=== PATIENT | female | born 1960 | race Two or more races ===

== ENCOUNTER → 2016-10-21 | Outpatient (CLI) | payer BC ==
--- NOTE | 2016-11-10 00:46 | ECWPNPC ---
PATIENT NAME: DARÍO ORTIZ : 1960 GENDER: FEMALE VISIT DATE: 10/21/2016 DISCHARGE DATE: 10/21/16 1455 VISIT LOCKED DATE TIME: PHYSICIAN: WILFRED GUERRERO RESOURCE: WILFRED GUERRERO REASON FOR APPOINTMENT 1. LEFT SCAPULA HISTORY OF PRESENT ILLNESS TODAY'S VISIT: NOTES: REFERRED BY Lata JOLLY PA-C FOR SHOULDER/SHOULDER BLADE PAIN. SX BEGAN AFTER DOING GARDENING WITH A TOOL WHICH REQUIRED ARM MOVEMENT. ONSET OF ACHE IN LEFT SCAPULA AND THEN BECAME A AGONIZING DEEP/THROBBING PAIN. INITIALLY PAIN WAS CONSTANT AND ADVANCED OVER THE LEFT ARM TO THE FOREARM. NO RADIATION TO HAND. HOT SHOWER IS HELPFUL. HAD INJECTION OF STEROIDS TO REGION 1 WEEK AGO AND THIS PLUS MOIST HEAT HAD DECREASED SOME OF THE INTENSITY. IS NO EXPERIENCING SOME N/T TO ALL FINGERS TIPS, NOT MUCH IN THE THUMB. NO SPECIFIC WEAKNESS.IS ABLE TO FULLY ABDUCT THE ARM. NEVER HAD ANYTHING THIS SEVERE BUT DID HAVE PRIOR ACHES AND PAIN. NO HISTORY OF SHOULDER JOINT PROBLEMS. HAS HX OF SOME MYOFASCIAL. NO HX OF HYPERFLEXION OF SHOULDER. ASPIRIN CREME NO HELP, DICLOFENAC AND BACLOFEN JUST STARTED. SANA 2 CAPS TID. . NEW PATIENT CONSULT: WHEN DID YOUR PAIN FIRST START? . BRIEFLY DESCRIBE HOW YOUR PAIN STARTED? . HOW DOES YOUR PAIN CHANGE WITH TIME? . DOES YOUR PAIN AWAKEN YOU FROM SLEEP? . HOW MANY HOURS OF SLEEP DO YOU NORMALLY GET? . ANY DIAGNOSTIC TESTING? . FACILITY WHERE TESTS WERE DONE? ____. PAIN TREATMENT TREATMENT YES CANCER HAVE YOU EVER HAD ANY TYPE OF CANCER?NO NO. PAIN SCREENING: PATIENT HAS A COMPLAINT OF ACUTE OR CHRONIC PAIN :YES FALL RISK SCREENING: SCREENING :NO FALLS IN THE PAST YEAR [place] INVENTORY: QUESTIONNAIRE ASSESSEDYES SCORE VALUE CALCULATED YES SCORE: 2 DENIES SUICIDAL OR HOMICIDAL IDEATION CURRENT MEDICATIONS TAKING GABAPENTIN 100 MG CAPSULE 2 CAPS ORALLY TID TAKING ATENOLOL 25 MG TABLET 1 TABLET ORALLY ONCE A DAY PRN TAKING PREMARIN 0.625 MG/GM CREAM VAGINAL TAKING CO Q 10 200 MG CAPSULE 1 CAPSULE WITH A MEAL ORALLY ONCE A DAY TAKING VITAMIN C 500 MG CAPSULE ORALLY TAKING PROBIOTIC - CAPSULE ORALLY DAILY TAKING IRON 325 (65 FE) MG TABLET 1 TABLET ORALLY ONCE A DAY UNKNOWN BACLOFEN 10 MG TABLET ORAL UNKNOWN DICLOFENAC SODIUM 75 MG TABLET DELAYED RELEASE ORAL UNKNOWN AMOXICILLIN 875 MG TABLET ORAL UNKNOWN MECLIZINE HCL 25 MG TABLET ORAL PAST MEDICAL HISTORY PALPITATIONS HYPERLIPIDEMIA ANEMIA DIVERTICULAR DISEASE ALLERGIES N.K.D.A. SURGICAL HISTORY LEFT BREAST BX 1995 FAMILY HISTORY FATHER: , DIAGNOSED WITH DIABETES, HYPERTENSION, HEART DISEASE, OTHER MOTHER: ALIVE, DIAGNOSED WITH DIABETES SIBLINGS: ALIVE DAUGHTER(S): ALIVE FATHER ALZHEMIERS. SOCIAL HISTORY GENERAL: TOBACCO USE ARE YOU A:NONSMOKER ALCOHOL SCREENING POINTS0 INTERPRETATIONNEGATIVE OCCUPATION: [employer] ADMINISTRATOR. DIET: REGULAR- HEALOTHY. EXERCISE: NO REGULAR EXERCISE. MARITAL STATUS: . OTHERS AT HOME: SPOUSE, CHILD. PETS: ONE. SCIENTOLOGY [id number] EPISCOPAL [facility] PFS, CLERGY, PUBLIC HEALTH REFERRALS CLERGY REFERRAL NEEDED?NO WAS THE PROVIDER NOTIFIED OF ANY PERTINENT INFO?NO PFS REFERRAL NEEDED?NO PUBLIC HEALTH REFERRAL NEEDED?NO HAS THE PATIENT BEEN EDUCATED REGARDING HIS/HER PLAN OF CARE?YES PLEASE DOCUMENT ANY ADDTIONAL DETAILS.PLEASE FREE TEXT IN THE NOTES SECTION. HAS THE PATIENT BEEN EDUCATED REGARDING PAIN, THE RISK FOR PAIN, THE IMPORTANCE OF EFFECTIVE PAIN MANAGEMENT, AND THE PAIN ASSESSMENT PROCESS?YES PATIENT: ____. ADVANCE DIRECTIVES HEALTH CARE PROXY?NO WOULD YOU LIKE MORE INFORMATION?YES DO YOU HAVE A DNR?NO WOULD YOU LIKE MORE INFORMATION?NO LIVING WILL?NO WOULD YOU LIKE MORE INFORMATION?NO HOUSING: OWNS HOME. REVIEW OF SYSTEMS REVIEWED BY: PROVIDER: WILFRED MENDEZ . CONSTITUTIONAL: ANY CHANGE IN YOUR MEDICAL CONDITION? NO . CHILLS NO . FEVER NO . INFECTION: DO YOU HAVE NEW INFECTIONS? NO . DO YOU HAVE HISTORY OF MRSA? NO . MUSCULOSKELETAL: ANY NEW PATTERNS OF PAIN OR NUMBNESS? YES. HX OF RIGHT SHOULDER ISSUES - DR Woo ARREOLA . SYTEMIC LUPUS NO . GASTROENTEROLOGY: ANY NEW CHANGE IN BOWEL CONTROL? NO . BARRETTS ESOPHAGUS NO . CIRRHOSIS NO . HEPATITIS NO . LIVER FAILURE NO . ACID REFLUX NO . UNEXPLAINED WEIGHT LOSS NO . GENITOURINARY: ANY NEW CHANGE IN BLADDER CONTROL? NO . IS THERE A CHANCE YOU COULD BE ? NO . HEMATOLOGY/LYMPH: DO YOU TAKE ANY BLOOD THINNERS? (FOR EXAMPLE- COUMADIN, PLAVIX, AGGRENOX, PLATEL, PRADAXA, OR XARELTO) NO . WHEN WAS YOUR LAST DOSE? DATE: TIME: . LOW PLATELET COUNT NO . SICKLE CELL DISEASE NO . VON WILLIEBRANDS NO . FACTOR V LEIDEN NO . THALLASEMIA NO . ANEMIA NO . EASY BRUISING NO . NEUROLOGY: HAVE YOU FALLEN IN THE PAST 6 MONTHS? NO . ANY NEW EXTREMITY NUMBNESS OR WEAKNESS? NO . HEAD INJURY NO . DEMENTIA NO . CEREBRAL PALSY NO . MULTIPLE SCLEROSIS NO . DIZZINESS NO . HEADACHE NO . STROKES NO . VERTIGO VERTIGO - LEFT SIDE. HAS DONE EPLY IN THE PAST. . CARDIOLOGY: DO YOU HAVE A PACEMAKER OR DEFIBRILLATOR? NO . ANGINA NO . HEART ATTACK NO . HEART SURGERY NO . CONGESTIVE HEART FAILURE/FLUID OVERLOAD NO . CHEST PAIN NO . HIGH BLOOD PRESSURE NO . IRREGULAR HEART BEAT NO - HX OF PALPITATIONS - ON ATENOLOL - HAD WORK UP . RESPIRATORY: HAVE YOU BEEN SICK IN THE PAST WEEK? NO . FEVER NO . FLU LIKE SYMPTOMS? NO . CPAP NO . BYPAP NO . ASTHMA NO . EMPHYSEMA NO . CHRONIC LUNG DISEASES NO . SHORTNESS OF BREATH ON EXERTION NO . DO YOU USE ANY TYPE OF TOBACCO (SMOKE, SMOKELESS, CHEW)? NO . COUGH NO . SNORING NO . INTEGUMENTARY: DO YOU HAVE ANY RASHES OR OPEN SORES? NO - ADULT ACNE . ALLERGIC/IMMUNO: ARE YOU ALLERGIC TO SHELLFISH OR IV DYE? NO . ANY NEW ALLERGIES? NO . PSYCHIATRIC: DO YOU HAVE THOUGHTS OF HURTING YOURSELF OR SOMEONE ELSE? NO . ARE YOU ABUSED, NEGLECTED, OR IN AN UNSAFE ENVIRONMENT? NO . ENDOCRINOLOGY: ARE YOU DIABETIC? NO . THYROID DISORDER NO . OTHER: DO YOU NEED ANY PRESCRIPTIONS? NO . IF YES, PLEASE LIST: ____ . ANY NEW PROBLEMS WITH YOUR MEDICATIONS? NO . WHEN DID YOU LAST EAT? ____ . WHEN DID YOU LAST DRINK? ____ . WHAT DID YOU LAST DRINK? ____ . NAME OF PERSON DRIVING YOU HOME? ____ . DO YOU HAVE ANY OTHER QUESTIONS OR CONCERNS NO . VITAL SIGNS WT 123.0 LBS, HT 64", BMI 21.11 INDEX, BP 118/69 MM HG, HR 70 /MIN, RR 16 /MIN, TEMP 98.4 F, OXYGEN SAT % 100%, NA INITIALS TL 1320, REVIEWED BY: KG. EXAMINATION GENERAL EXAMINATION: GENERAL APPEARANCE:WELL GROOMED. PSYCHALERT , ORIENTED X 3 , ANXIOUS. HEENT:NORMOCEPHALIC, NO LYMPHADENOPATHY, NO THYROMEGLY. LUNGS:CLEAR TO AUSCULTATION BILATERALLY, NO WHEEZES, RALES OR RHONCHI. REPORTS CHEST WALL PAIN WITH TAKING A DEEP BREATH. HEART:HEART RATE REGULAR, NORMAL S1S2, NO MURMURS, CLICK OR RUBS. MUSCULOSKELETAL:EXQUISITE TENDERNESS AND TRIGGER POINTS OVER LEFT SUPRASPINATOUS MUSCLE, OVER THE LEFT TRAPEZIUS/ALONG SCAPULA AND LEFT LATISSIMUS DORSI. STRUCTURES TECHNICIAN STRENGTH EQUAL AND STRONG. CAN ABDUCT LEFT ARM WITH COMPLAINT OF PAIN TO TO > 90 DEGREES. DECREASED ROM WITH NECK ROTATION, LEXION AND EXTENSION. TIGHTNESS AND SPASM NOTED OVER LEFT STERNOCLEIDOMASTOID MUSCLE. SOME WINGING OF LEFT SCAPULA NOTED. . NEUROLOGIC EXAM:DTR'S 2 + BILATRAL UPPER AND LOWER EXTREMITIES. POSITIVE TINELS SIGN LEFT ELBOW - NEG AT WRISTS OR RIGHT ELBOW. - DECREASE SENSATION TO LIGHT TOUCH OVER LEFT FOREARM. . ASSESSMENTS MYALGIA - M79.1 (PRIMARY) ACUTE PAIN OF LEFT SHOULDER - M25.512 TREATMENT MYALGIA STOP BACLOFEN TABLET, 10 MG, ORAL START TIZANIDINE HCL TABLET, 2 MG, 1 TABLET NEEDED, ORALLY, TAKE 1 IN AM AND 2 AT BEDTIME, 30 DAY(S), 90, REFILLS 1 LRY SPINE CERVICAL W/AP/FLEX/[id number] SHOULDER [id number],SUSAN M 10/21/2016 2:37:58 PM > LEFT - PAIN, LOSS OF ROM NOTES: OVER THE COUNTER TENS UNIT TO PAINFUL ANDERSON LEFT SHOULDER BLADECONSIDER MASSAGE THERA[YSTOP DICLOFENAC - START ALEVE (NAPROXYN) 1 TAB TWICE A DAY WITH FOODCONTINUE ICE AND HEAT. CLINICAL NOTES: DISCUSSED OPTIONS FOR TREATMENT INCLUDING PHYSICAL THERAPY, APPLICATION OF ICE AND HEAT, AND POSSIBLE INTERVENTIONS/INJECTION TREATMENT. PROCEDURE CODES FA211 ESTABILISHED PATIENT [facility] CHARGE DISPOSITION & COMMUNICATION FOLLOW UP 2 WEEKS (REASON: LEFT SCAPULA) ELECTRONICALLY SIGNED BY NELIA ORTEGA ON 11/09/2016 AT 02:50 PM EDT DISCLAIMER : THIS IS A VISIT SUMMARY EXTRACTED FROM THE [employer] CHART. IT IS NOT A COPY OF THE [employer] PROGRESS NOTE. KRISTOFERD
== END ==
LOC: M PAIN 13:20
PROVIDERS: ATTEND Nurse Practitioner Family
DX: G89.29 Other chronic pain (principal); M25.512 Pain in left shoulder; M79.1 Myalgia; E78.5 Hyperlipidemia, unspecified; Z79.899 Other long term (current) drug therapy

== ENCOUNTER → 2016-11-04 | Outpatient (CLI) | payer BC ==
--- NOTE | 2016-11-29 00:08 | ECWPNPC ---
PATIENT NAME: DARÍO ORTIZ : 1960 GENDER: FEMALE VISIT DATE: 11/04/2016 DISCHARGE DATE: 11/04/16 1309 VISIT LOCKED DATE TIME: PHYSICIAN: WILFRED GUERRERO RESOURCE: WILFRED GUERRERO REASON FOR APPOINTMENT 1. SCALPULA HISTORY OF PRESENT ILLNESS HISTORY OF PRESENT ILLNESS: PAIN THE PATIENT DESCRIBES THE PAIN... FALL RISK SCREENING: SCREENING :NO FALLS IN THE PAST YEAR TODAY'S VISIT: NOTES: RATES PAIN TODAY 1-06/04. DIDNOT TOLERATE THE TIZANIDINE. HAS BEEN USING OTC TENS WITH GOOD EFFECT ALONG WITH ICY-HOT. HAS BEEN HAVING N/T INTO LEFT HAND ON AWAKENING . CURRENT MEDICATIONS TAKING GABAPENTIN 100 MG CAPSULE 1 CAP ORALLY THREE TIMES DAILY TAKING ATENOLOL 25 MG TABLET 1 TABLET ORALLY ONCE A DAY PRN TAKING PREMARIN 0.625 MG/GM CREAM VAGINAL TAKING CO Q 10 200 MG CAPSULE 1 CAPSULE WITH A MEAL ORALLY ONCE A DAY TAKING VITAMIN C 500 MG CAPSULE ORALLY TAKING PROBIOTIC - CAPSULE ORALLY DAILY TAKING IRON 325 (65 FE) MG TABLET 1 TABLET ORALLY ONCE A DAY TAKING ALEVE 220 MG TABLET 1 TABLET NEEDED ORALLY EVERY 12 HRS TAKING DICLOFENAC SODIUM 75 MG TABLET DELAYED RELEASE ORAL ONCE EVERY NIGHT NOT-TAKING TIZANIDINE HCL 2 MG TABLET 1 TABLET NEEDED ORALLY TAKE 1 IN AM AND 2 AT BEDTIME UNKNOWN AMOXICILLIN 875 MG TABLET ORAL UNKNOWN MECLIZINE HCL 25 MG TABLET ORAL MEDICATION LIST REVIEWED AND RECONCILED WITH THE PATIENT PAST MEDICAL HISTORY PALPITATIONS HYPERLIPIDEMIA ANEMIA DIVERTICULAR DISEASE ALLERGIES N.K.D.A. REVIEW OF SYSTEMS REVIEWED BY: PROVIDER: WILFRED GUERRERO DIET AID . CONSTITUTIONAL: ANY CHANGE IN YOUR MEDICAL CONDITION? NO . CHILLS NO . FEVER NO . INFECTION: DO YOU HAVE NEW INFECTIONS? NO . DO YOU HAVE HISTORY OF MRSA? NO . MUSCULOSKELETAL: ANY NEW PATTERNS OF PAIN OR NUMBNESS? YES, FEELING SOME PAIN AND FATIGUE ACROSS TO BOTH SHOULDERS NOW. FEELS IT IS FROM USING RIGHT ARM MORE. IS HAVING MORE PAIN IN LOWER LEFT ARM AND HAVING MORE NUMBNESS DOWN ARM INTO POINTER FINGER ON THE LEFT HAND. . GASTROENTEROLOGY: ANY NEW CHANGE IN BOWEL CONTROL? NO . GENITOURINARY: ANY NEW CHANGE IN BLADDER CONTROL? NO . IS THERE A CHANCE YOU COULD BE ? NO . HEMATOLOGY/LYMPH: DO YOU TAKE ANY BLOOD THINNERS? (FOR EXAMPLE- COUMADIN, PLAVIX, AGGRENOX, PLATEL, PRADAXA, OR XARELTO) NO . WHEN WAS YOUR LAST DOSE? DATE: TIME: . NEUROLOGY: HAVE YOU FALLEN IN THE PAST 6 MONTHS? NO . ANY NEW EXTREMITY NUMBNESS OR WEAKNESS? NO . CARDIOLOGY: DO YOU HAVE A PACEMAKER OR DEFIBRILLATOR? NO . RESPIRATORY: HAVE YOU BEEN SICK IN THE PAST WEEK? NO . FEVER NO . FLU LIKE SYMPTOMS? NO . COUGH NO . INTEGUMENTARY: DO YOU HAVE ANY RASHES OR OPEN SORES? NO . ALLERGIC/IMMUNO: ARE YOU ALLERGIC TO SHELLFISH OR IV DYE? NO . ANY NEW ALLERGIES? NO . PSYCHIATRIC: DO YOU HAVE THOUGHTS OF HURTING YOURSELF OR SOMEONE ELSE? NO . ARE YOU ABUSED, NEGLECTED, OR IN AN UNSAFE ENVIRONMENT? NO . ENDOCRINOLOGY: ARE YOU DIABETIC? NO . OTHER: DO YOU NEED ANY PRESCRIPTIONS? NO . IF YES, PLEASE LIST: ____ . ANY NEW PROBLEMS WITH YOUR MEDICATIONS? NO . WHEN DID YOU LAST EAT? ____ . WHEN DID YOU LAST DRINK? ____ . WHAT DID YOU LAST DRINK? ____ . NAME OF PERSON DRIVING YOU HOME? ____ . DO YOU HAVE ANY OTHER QUESTIONS OR CONCERNS YES, DID PURCHASE A TENS UNIT OVER THE COUNTER AND IS FINDING IT DOES PRODUCE SOME RELIEF WITH THE TINGING AND NUMBNESS. . VITAL SIGNS WT 123 LBS, HT 64", BMI 21.11 INDEX, BP 115/64 MM HG, HR 72 /MIN, RR 16 /MIN, TEMP 98.4 F, OXYGEN SAT % 99%, REVIEWED BY: CM [id number]. EXAMINATION GENERAL EXAMINATION: PSYCHALERT , ORIENTED X 3 , ANXIOUS. LUNGS:CLEAR TO AUSCULTATION BILATERALLY. HEART:HEART RATE REGULAR, NORMAL S1S2, NO MURMURS, CLICK OR RUBS. MUSCULOSKELETAL:TENDERNESS AND TRIGGER POINTS OVER LEFT SUPRASPINATOUS MUSCLE, OVER THE LEFT TRAPEZIUS/ALONG SCAPULA AND LEFT LATISSIMUS DORSI. CASE LINER STRENGTH EQUAL AND STRONG. CAN ABDUCT LEFT ARM WITH COMPLAINT OF PAIN TO TO > 90 DEGREES. DECREASED ROM WITH NECK ROTATION, LEXION AND EXTENSION. TIGHTNESS AND SPASM NOTED OVER LEFT STERNOCLEIDOMASTOID MUSCLE. SOME WINGING OF LEFT SCAPULA NOTED. . NEUROLOGIC EXAM:DTR'S 2 + BILATERAL UPPER AND LOWER EXTREMITIES.- DECREASED SENSATION TO LIGHT TOUCH OVER LEFT FOREARM. . ASSESSMENTS MYALGIA - M79.1 (PRIMARY) ACUTE PAIN OF LEFT SHOULDER - M25.512 TREATMENT MYALGIA REFILL DICLOFENAC SODIUM TABLET DELAYED RELEASE, 75 MG, 1 CAP, ORAL, ONCE EVERY NIGHT, 30 DAY(S), 30, REFILLS 1 REFILL GABAPENTIN CAPSULE, 100 MG, 1 CAP, ORALLY, BEFORE BEDTIME, 30 DAYS, 30, REFILLS 1 [facility] SHOULDER W/O [id number],SUSAN M 11/04/2016 12:52:33 PM > LOSS OF ROM PROCEDURE CODES FA211 ESTABILISHED PATIENT [facility] CHARGE DISPOSITION & COMMUNICATION FOLLOW UP 1 MONTH (REASON: CHECK AUTH FOR MRI LEFT SHOULDER AND PHYSICAL THERAPY) ELECTRONICALLY SIGNED BY NELIA ORTEGA ON 11/28/2016 AT 11:02 AM EDT DISCLAIMER : THIS IS A VISIT SUMMARY EXTRACTED FROM THE [employer] CHART. IT IS NOT A COPY OF THE [employer] PROGRESS NOTE. MTDLoulou
== END ==
LOC: M PAIN 12:00
PROVIDERS: ATTEND Nurse Practitioner Family
DX: G89.29 Other chronic pain (principal); M25.512 Pain in left shoulder; M79.1 Myalgia; E78.5 Hyperlipidemia, unspecified; D64.9 Anemia, unspecified; Z79.1 Long term (current) use of non-steroidal anti-inflammatories (NSAID); Z79.899 Other long term (current) drug therapy

== ENCOUNTER → 2021-05-06 | Outpatient (CLI) | payer OTHER | LOC: M WHC 08:26 | PROVIDERS: ATTEND Nurse Practitioner | DX: Z12.31 Encounter for screening mammogram for malignant neoplasm of breast (principal) ==

== ENCOUNTER → 2022-06-16 | Outpatient (CLI) | payer OTHER | LOC: M WHC 09:37 | PROVIDERS: ATTEND Nurse Practitioner Family | DX: Z13.820 Encounter for screening for osteoporosis (principal); N95.1 Menopausal and female climacteric states; Z12.31 Encounter for screening mammogram for malignant neoplasm of breast; M85.88 Other specified disorders of bone density and structure, other site; M85.851 Other specified disorders of bone density and structure, right thigh; M85.852 Other specified disorders of bone density and structure, left thigh ==

== ENCOUNTER → 2023-02-25 | Outpatient (CLI) | payer BC, OTHER | LOC: M PLAIMG 13:14 | PROVIDERS: ATTEND Physician Assistant | DX: M25.561 Pain in right knee (principal) ==

== ENCOUNTER → 2024-06-21 | Outpatient (CLI) | payer BC | LOC: M WHC 08:55 | PROVIDERS: ATTEND Family Medicine | DX: Z12.31 Encounter for screening mammogram for malignant neoplasm of breast (principal); N95.1 Menopausal and female climacteric states; M85.89 Other specified disorders of bone density and structure, multiple sites ==